=== PATIENT | male | born 1980 | race Two or more races ===

== ENCOUNTER 2019-04-03 07:44 | Emergency (ER) | payer OTHER ==
[~2019-04-03] VITALS: Ht 170.2 cm; Wt 130.2 kg
== END 2019-04-03 10:47 | disposition home or self-care (01) ==
LOC: ER 07:44
DX: S93.402A Sprain of unspecified ligament of left ankle, initial encounter (principal); X50.1XXA Overexertion from prolonged static or awkward postures, initial encounter; Y93.89 Activity, other specified; Y92.89 Other specified places as the place of occurrence of the external cause; Y99.8 Other external cause status